=== PATIENT | female | born 1990 | race American Indian/Alaskan Native ===

== ENCOUNTER 2017-09-14 11:47 | Emergency (ER) | payer MEDICAID ==
[2017-09-14 17:03] VITALS: BP 111/62
--- NOTE | 2017-09-14 17:38 | Emergency Department Report ---
Minor Respiratory - HPI Chief Complaint: Upper Respiratory Infection Stated Complaint: FLU LIKE SYMPTOMS Time Seen by Provider: 09/14/17 15:08 Duration: 1 week Pain Location: Nose (congestion) Severity: moderate Minor Respiratory: Yes Rhinorrhea, Yes Able to Tolerate Fluids, Yes Cough, Yes Sick Contacts (entire family sick with flu-like symptoms), Yes Fever, No Sore Throat, No Ear Pain, No Hemoptysis, No Chest Pain, No Shortness of Breath Other History: This is a 27 y.o. female with cough, fever, headache, congestion , and muscle aches for 1 week. Symptoms started last week for her and son. She is taking tylenol and thong-selzer cold and cough for symptom control, with minimal relief. Denies change in appetite, SOB, and chest pain. Denies getting influenza immunization this year. ED Review of Systems ROS: Stated complaint: FLU LIKE SYMPTOMS Other details as noted in HPI Constitutional: chills, fever, malaise. denies: diaphoresis, weakness Eyes: denies: eye pain, eye discharge, vision change ENT: throat pain, congestion. denies: ear pain, dental pain, hearing loss, epistaxis Respiratory: cough. denies: orthopnea, shortness of breath, SOB with exertion, SOB at rest, stridor, wheezing Cardiovascular: denies: chest pain, palpitations Gastrointestinal: denies: abdominal pain, nausea, vomiting, diarrhea Neurological: denies: headache, weakness, paresthesias ED Past Medical Hx - Past Medical History Previous Medical History?: No - Surgical History Hx Appendectomy: Yes - Social History Smoking Status: Former Smoker Substance Use Type: None - Medications Home Medications: Home Medications Medication Instructions Recorded Confirmed Last Taken Type Acetaminophen 325 mg PO Q6H #1 bottle 09/14/17 Unknown Rx Benzonatate 200 mg PO TID PRN #30 capsule 09/14/17 Unknown Rx Fluticasone [Flonase] 1 spray NS QDAY #1 bottle 09/14/17 Unknown Rx Minor Respiratory Exam - Exam General: Vital signs noted. No distress. Alert and acting appropriately. HEENT: Yes Pharyngeal Erythema, Yes Moist Mucous Membranes, Yes Rhinorrhea, No Pharyngeal Exudates, No Conjuctival Injection, No Frontal Tenderness, No Maxillary Tenderness Ear: Neither TM Bulge, Neither TM Erythema, Neither EAC Pain, Neither EAC Discharge Neck: Yes Supple, No Adenopathy Lungs: Yes Good Air Exchange, Yes Cough, No Wheezes, No Ronchi, No Stridor, No Labored Respirations, No Retractions, No Use of Accessory Muscles, No Other Abnormal Lung Sounds Heart: Yes Murmur, No Regular Abdomen: Yes Normal Bowel Sounds, No Tenderness, No Peritoneal Signs Skin: No Rash, No Edema Neurologic: Alert and oriented, no deficits. Musculoskeletal: Unremarkable. ED Course Vital Signs 09/14/17 09/14/17 12:28 17:02 Temperature 100.2 F H 100.0 F H Pulse Rate 101 H 99 H Respiratory 18 20 Rate Blood Pressure 130/70 Blood Pressure 111/62 [Right] O2 Sat by Pulse 99 98 Oximetry ED Medical Decision Making - Medical Decision Making This is a 27 y.o. female presents with cough, body aches, fever, headache, and congestion for 1 week. She is taking tylenol and htong-seltzer cold and cough with minimal improvement. Negative influenza. One of her children is positive. Moms symptoms started 1 week ago. URI possibly influenza. Discharged home with supportive care. Instructed to f/u with PCP in 48 hours or sooner if symptoms are worse. Critical care attestation.: If time is entered above; I have spent that time in minutes in the direct care of this critically ill patient, excluding procedure time. ED Disposition Clinical Impression: Viral syndrome URI (upper respiratory infection) Qualifiers: URI type: acute nasopharyngitis (common cold) Qualified Code(s): J00 - Acute nasopharyngitis [common cold] Disposition: - TO HOME OR SELFCARE Is pt being admited?: No Does the pt Need Aspirin: No Condition: Stable Instructions: Viral Syndrome (ED), Upper Respiratory Infection (ED), Cold Symptoms (ED) Additional Instructions: Wash hands frequently. The cough can last for 2-3 weeks. Use tylenol and ibuprofen should be taken with regular fluid intake. Follow up with primary care provider. Seek medical attention if fever, headache, wheezing, or chest symptoms worsen. If drowsy or confused in the short term or if cough last longer than 4 weeks. Prescriptions: Acetaminophen 325 mg PO Q6H #1 bottle Benzonatate 200 mg PO TID PRN #30 capsule PRN Reason: Cough Fluticasone [Flonase] 1 spray NS QDAY #1 bottle Referrals: SHANE PANIAGUA [Other] - 3-5 Days [facility] [Outside] - 3-5 Days [facility] [Outside] - 3-5 Days [facility] [Outside] - 3-5 Days Time of Disposition: 17:40 Print Language: UZBEK
[2017-09-14] MEDS ORDERED: MOTRIN PO ONE (18:32)
== END 2017-09-14 19:06 | disposition home or self-care (01) ==
LOC: ED 11:47
DX: B34.9 Viral infection, unspecified (principal); J00 Acute nasopharyngitis [common cold]; Z87.891 Personal history of nicotine dependence
CPT/HCPCS: 87400; 99282

== ENCOUNTER 2019-05-19 12:32 | Emergency (ER) | payer OTHER ==
--- NOTE | 2019-05-19 14:43 | Event Note ---
ED Screening Note ED Screening Note: pt presents with BLE edema for a month pt states she is on her feet 4-5 hours a day no pmhx no allergies to meds This initial assessment/diagnostic orders/clinical plan/treatment(s) is/are subject to change based on patients health status, clinical progression and re- assessment by fellow clinical providers in the ED. Further treatment and workup at subsequent clinical providers discretion. Patient/guardian urged not to elope from the ED as their condition may be serious if not clinically assessed and managed. Initial orders include: labs
[2019-05-19 14:44] VITALS: BP 123/64
[2019-05-19 15:39] LABS: Hematocrit TNR % (30.3-42.9); Hemoglobin TNR gm/dl (10.1-14.3); Mean Corpuscular Volume TNR fl (79-97); Red Blood Count TNR M/mm3 (3.65-5.03)
[2019-05-19 15:40] LABS: Mean Corpuscular HGB Conc TNR % (30-34); Mean Platelet Volume TNR fl (6-12); Platelet Count TNR K/mm3 (140-440); Red Cell Distribution Width TNR % (13.2-15.2)
[2019-05-19 15:41] LABS: Lymphocytes % (Auto) TNR % (13.4-35.0)
[2019-05-19 15:42] LABS: Basophils # (Auto) TNR K/mm3 (0.0-0.1); Basophils % (Auto) TNR % (0.0-1.8); Eosinophils # (Auto) TNR K/mm3 (0.0-0.4); Eosinophils % (Auto) TNR % (0.0-4.3); Lymphocytes # (Auto) TNR K/mm3 (1.2-5.4); Monocytes # (Auto) TNR K/mm3 (0.0-0.8); Monocytes % (Auto) TNR % (0.0-7.3)
[2019-05-19 15:44] LABS: Alanine Aminotransferase 18 units/L (7-56); BUN/Creatinine Ratio 13; Blood Urea Nitrogen 10 mg/dL (7-17); Calcium 8.9 mg/dL (8.4-10.2); Hemolysis Index 17
[2019-05-19 16:04] LABS: Basophils % (Auto) 0.6 % (0.0-1.8); Eosinophils # (Auto) 0.2 K/mm3 (0.0-0.4); Eosinophils % (Auto) 3.3 % (0.0-4.3); Hematocrit 36.4 % (30.3-42.9); Hemoglobin 12.3 gm/dl (10.1-14.3); Lymphocytes # (Auto) 1.9 K/mm3 (1.2-5.4); Mean Corpuscular HGB Conc 34 % (30-34); Mean Corpuscular Volume 82 fl (79-97); Monocytes # (Auto) 0.3 K/mm3 (0.0-0.8); Monocytes % (Auto) 5.1 % (0.0-7.3); Platelet Count 238 K/mm3 (140-440); Red Blood Count 4.42 M/mm3 (3.65-5.03); Red Cell Distribution Width 13.2 % (13.2-15.2)
[2019-05-19] MEDS ORDERED: LASIX PO ONE (16:09)
--- NOTE | 2019-05-19 16:46 | Emergency Department Report ---
HPI - General Chief Complaint: Extremity Injury, Lower Time Seen by Provider: 05/19/19 14:42 - HPI HPI: 29-year-old female presents to the emergency department with a complaint of a 6 week history of bilateral lower extremity swelling. She recently started having some discomfort secondary to the swelling. She denies any skin color change, rash or lesions. She denies any chest pain, back pain or shortness of breath. She denies any past history. She denies any recent travel, recent surgery, recent immobility. The patient has been trying some [id number] "water pills" that are sold [employer] but she says that they have not provided any relief. She does not have a primary care physician. ED Past Medical Hx - Past Medical History Previous Medical History?: No - Surgical History Past Surgical History?: Yes Hx Appendectomy: Yes - Social History Smoking Status: Never Smoker Substance Use Type: None - Medications Home Medications: Home Medications Medication Instructions Recorded Confirmed Last Taken Type Acetaminophen 325 mg PO Q6H #1 bottle 09/14/17 Unknown Rx Benzonatate 200 mg PO TID PRN #30 capsule 09/14/17 Unknown Rx Fluticasone [Flonase] 1 spray NS QDAY #1 bottle 09/14/17 Unknown Rx ED Review of Systems ROS: Stated complaint: LEG/FEET SWELLING PAIN Other details as noted in HPI Comment: All other systems reviewed and negative Constitutional: denies: chills, fever Respiratory: denies: orthopnea, shortness of breath Cardiovascular: edema. denies: chest pain Gastrointestinal: denies: abdominal pain, vomiting Musculoskeletal: arthralgia, myalgia. denies: back pain Skin: denies: rash, lesions Neurological: denies: numbness, paresthesias Physical Exam - Physical Exam Vital Signs: Vital Signs 05/19/19 14:42 Temperature 98.3 F Pulse Rate 74 Respiratory 16 Rate Blood Pressure 123/64 O2 Sat by Pulse 100 Oximetry Physical Exam: GENERAL: The patient is well-developed well-nourished. HENT: Normocephalic. Atraumatic. Patient has moist mucous membranes. EYES: Extraocular motions are intact. NECK: Supple. Trachea is midline. CHEST/LUNGS: Clear to auscultation. There is no respiratory distress noted. HEART/CARDIOVASCULAR: Regular. There is no tachycardia. There is no murmur. ABDOMEN: Abdomen is soft, nontender. Patient has normal bowel sounds. There is no abdominal distention. SKIN: Patient has 1+ bilateral lower extremity pitting swelling. No erythema, fluctuance, warmth. NEURO: The patient is awake, alert, and oriented. The patient is cooperative. The patient has no focal neurologic deficits. Normal speech. MUSCULOSKELETAL: There is no some mild tenderness to palpation to the bilateral feet but no obvious deformity.. There is no evidence of acute injury. ED Course Vital Signs 05/19/19 14:42 Temperature 98.3 F Pulse Rate 74 Respiratory 16 Rate Blood Pressure 123/64 O2 Sat by Pulse 100 Oximetry ED Medical Decision Making - Lab Data Result diagrams: 05/19/19 15:52 05/19/19 14:57 - Medical Decision Making Patient presents with a one to 2 month history of bilateral lower extremity s welling. She does have moderate swelling with 1+ pitting. Her BNP was very low showing at this does not appear to be signs of congestive heart failure. She does not have any recent history or vital signs concerning for DVT. There is no erythema, warmth, fluctuance concerning for any cellulitis or abscess formation. The rest of her labs have been unremarkable as well. She has been given a dose of Lasix to start diuresis. We discussed compression stockings and keeping her legs raised at home, but otherwise avoiding immobility. She was given a primary care referral. She will return to the ER with any worsening of her symptoms or any acute distress. - Differential Diagnosis venous-stasis, CHF, DVT, cellulitis Critical Care Time: No Critical care attestation.: If time is entered above; I have spent that time in minutes in the direct care of this critically ill patient, excluding procedure time. ED Disposition Clinical Impression: Swelling of both lower extremities Disposition: DC-01 TO HOME OR SELFCARE Is pt being admited?: No Condition: Stable Instructions: Leg Edema (ED) Additional Instructions: Please follow-up with a primary care physician in the next few days. Return to the emergency Department with any worsening of your symptoms or any acute distress. I do not want you to be immobile, however when you are at home rest ing you should keep her legs elevated on a few pillows. You can also try compression stockings. Referrals: NARCISA OROZCO MD [Staff Physician] - 2-3 Days [facility] [Outside] - 2-3 Days Time of Disposition: 16:46
== END 2019-05-19 17:08 | disposition home or self-care (01) ==
LOC: ED 12:32
DX: R22.43 Localized swelling, mass and lump, lower limb, bilateral (principal); Z90.49 Acquired absence of other specified parts of digestive tract; Z79.899 Other long term (current) drug therapy
CPT/HCPCS: 36415; 80053; 83880; 85025; 99283